=== PATIENT | male | born 1940 | race African-American/Black ===

== ENCOUNTER 2018-10-17 15:13 | Emergency (ER) | payer MEDICARE, MEDICAID ==
--- OUTSIDE RECORDS SUMMARY | 2018-10-17 15:54 | XMS REPORT | Continuity of Care Document ---
:1940 External Reference #:[id number] Author Name PriceGeorgie sánchez Care Team Providers Name Role Phone Kae Sellers MD Primary Care Physician Unavailable Payers Date Identification Numbers Payment Provider Subscriber Effective: 2015 Policy Number: [id number] Medicare Navjot Núñez PayID: [id number] [address] [place] [address] Effective: 2015 Policy Number: [id number] Medicaid Navjot Núñez Group Name: 1 1 [address] PayID: [id number] [place] [address] Advance Directives Description No Information Available Problems Date Description Provider Status Onset: 09/01/2015 Essential hypertension Juan King NP Active Onset: 02/03/2018 Type 2 diabetes mellitus Juan King NP Active Family History Date Family Member(s) Observation Comments General non contributory Social History Type Date Description Comments Sex Unknown Marital Status Lives With Granddaughter ETOH Use Denies alcohol use Tobacco Use Start: Unknown Patient has never smoked Smoking Status Reviewed: 09/26/18 Patient has never smoked Exercise Does not exercise Active around the Type/Frequency house. Allergies, Adverse Reactions, Alerts Description No Known Drug Allergies Medications Medication Date Status Form Strength Qnty SIG Indications Ordering Provider Fluticasone 01/12/ Active Suspension 50mcg/Act 16unit 2 sprays R49.0 Juan Propionate 2018 s each ZAHRA King nostril qd. (not taking) Aspirin 07/13/ Active Chewtabs 81mg once [facility] 2017 daily ZAHRA King Blood Pressure 09/26/ Active Kit 1units for home I10 Juan Monitor 2016 monitorin ZAHRA King Automatic g, 3 times weekly Lisinopril 00/00/ Active Tablets 20mg 90tabs Take 1 I10 Juan 0000 Tablet By ZAHRA King Mouth Every Day Amlodipine 00/00/ Active Tablets 10mg 90tabs Take 1 I10 Juan Besylate 0000 Tablet By ZAHRA King Mouth Every Day Immunizations CPT Code Status Date Vaccine Lot # [id number] Given 06/17/2018 Influenza Virus Vaccine, Quadrivalent, Split, [id number] Preservative Free [id number] Given 06/17/2018 Pneumococcal Conjugate Vaccine 13 Valent For [id number] Intramuscular Use Vital Signs Date Vital Result Comment 09/26/2018 11:31am Height 61.25 inches 5'1.25" Weight 131.38 lb Heart Rate 75 /min BP Systolic 162 mmHg BP Diastolic 86 mmHg BP Systolic Recheck 164 mmHg BP Diastolic Recheck 88 mmHg Body Temperature 96.7 F O2 % BldC Oximetry 98 % BMI (Body Mass Index) 24.6 kg/m2 06/17/2018 3:14pm Height 61.25 inches 5'1.25" Weight 133.00 lb Heart Rate 82 /min BP Systolic 146 mmHg BP Diastolic 79 mmHg BP Systolic Recheck 128 mmHg BP Diastolic Recheck 74 mmHg O2 % BldC Oximetry 97 % BMI (Body Mass Index) 24.9 kg/m2 02/03/2018 8:19am Height 61.25 inches 5'1.25" Weight 135.00 lb Heart Rate 87 /min BP Systolic 171 mmHg BP Diastolic 96 mmHg BP Systolic Recheck 146 mmHg BP Diastolic Recheck 86 mmHg Body Temperature 98.7 F O2 % BldC Oximetry 97 % BMI (Body Mass Index) 25.3 kg/m2 01/12/2018 4:08pm Height 61.25 inches 5'1.25" Weight 136.50 lb Heart Rate 88 /min BP Systolic 140 mmHg BP Diastolic 78 mmHg Body Temperature 97.4 F O2 % BldC Oximetry 98 % BMI (Body Mass Index) 25.6 kg/m2 11/11/2017 3:56pm Height 61.25 inches 5'1.25" Weight 134.00 lb Heart Rate 79 /min BP Systolic 146 mmHg BP Diastolic 80 mmHg Body Temperature 97.7 F O2 % BldC Oximetry 95 % BMI (Body Mass Index) 25.1 kg/m2 07/06/2017 9:56am Weight 136.00 lb Heart Rate 81 /min BP Systolic 128 mmHg BP Diastolic 68 mmHg Body Temperature 97.1 F O2 % BldC Oximetry 96 % 01/12/2017 9:25am Height 61.5 inches 5'1.50" Weight 135.00 lb Heart Rate 97 /min BP Systolic Sitting 150 mmHg BP Diastolic Sitting 90 mmHg BP Systolic Recheck 130 mmHg BP Diastolic Recheck 86 mmHg O2 % BldC Oximetry 97 % BMI (Body Mass Index) 25.1 kg/m2 07/13/2016 8:27am Height 61.5 inches 5'1.50" Weight 133.00 lb Heart Rate 78 /min BP Systolic 136 mmHg BP Diastolic 86 mmHg Body Temperature 97.5 F O2 % BldC Oximetry 98 % BMI (Body Mass Index) 24.7 kg/m2 01/09/2016 10:09am Height 61.5 inches 5'1.50" Weight 129.00 lb Heart Rate 78 /min BP Systolic Sitting 126 mmHg BP Diastolic Sitting 84 mmHg Respiratory Rate 14 /min Body Temperature 98.4 F O2 % BldC Oximetry 97 % BMI (Body Mass Index) 24.0 kg/m2 09/27/2015 9:33am Height 61.5 inches 5'1.50" Weight 132.75 lb Heart Rate 95 /min BP Systolic Sitting 182 mmHg home BP Monitor 196/97 BP Diastolic Sitting 72 mmHg home BP Monitor 196/97 BP Systolic Recheck 154 mmHg home BP recheck 176/93 BP Diastolic Recheck 84 mmHg home BP recheck 176/93 Body Temperature 96.8 F O2 % BldC Oximetry 98 % BMI (Body Mass Index) 24.7 kg/m2 08/30/2015 8:52am Height 61.5 inches 5'1.50" Weight 132.00 lb Heart Rate 70 /min BP Systolic Sitting 150 mmHg BP Diastolic Sitting 90 mmHg Respiratory Rate 15 /min Body Temperature 97.9 F O2 % BldC Oximetry 96 % BMI (Body Mass Index) 24.5 kg/m2 Results Test Date Facility Test Result H/L Range Note Laboratory test 06/17/2018 [facility] Hemoglobin A1c 6.9 5-7 finding Lipid Profile 02/08/2018 [facility] Triglycerides 47 mg/dL 1 (Trig/Chol/HDL) [address] [place] [address] [phone] Cholesterol 198 mg/dL 2 HDL Cholesterol 76.1 mg/dL 3 LDL Cholesterol 113 mg/dL 4 Urine Microalbumin 02/08/2018 [facility] Ur Microalbumin 23.[address] (mg/L) [place], [place] [id number] [phone] Urine Creatinine 232.95 mg/dL Urine Microalbumin/Creatinine 9.9 N <31 CBC No Diff 02/08/2018 [facility] White Blood 5.5 10^3/uL N 3.5-10.[address] [place] [address] [phone] Red Blood Count 4.46 10^6/uL N 4.00-5.40 Hemoglobin 13.4 g/dL Low 14.0-18.0 Hematocrit 39 % Low 42-52 Mean Corpuscular Volume 87 fL N 80-94 Mean Corpuscular Hemoglobin 30 pg N 27-31 Mean Corpuscular HGB Conc 35 g/dL N 31-36 Red Cell Distribution Width 15 % N 10.5-15 Platelet Count 229 10^3/uL N 150-450 Mean Platelet Volume 8.1 um3 N 7.4-10.4 Iron & Iron Binding 02/08/2018 [facility] Iron 148 g/dL N 50 -[address] [place], [place] [id number] [phone] Unsaturated Iron Binding 233 g/dL Total Iron Binding Capacity 381 g/dL N 250-450 Transferrin 272 mg/dL N 203-362 % Iron Saturation 39 % N 15-55 Laboratory test 02/08/2018 [facility] Ferritin 25.1 ng/mL N 24 -[address] [place], [place] [id number] [phone] Vitamin B12 933 pg/mL High 180-914 6 Laboratory test 01/19/2018 [facility] Hemoglobin A1c 6.5 % High 4.0-5.[address] (Glyco HGB) [place], [place] [id number] [phone] Urine Culture And 01/19/2018 [facility] Urine Culture SEE RESULT [address] [place] [address] [phone] Urinalysis 01/19/2018 [facility] Urine Color Yellow Profile [address] [place], [place] [id number] [phone] Urine Appearance Clear Urine Specific Bantam 1.012 N 1.010-1.030 Urine pH 7.0 N 5-9 Urine Urobilinogen Negative Negative Urine Ketones Negative Negative Urine Protein Negative Negative Urine Leukocytes 1+ Abnormal Negative Urine Blood Negative Negative Urine Nitrite Negative Negative Urine Bilirubin Negative Negative Urine Glucose Negative Negative Urine White Blood Cell Trace(0-5/hpf) Absent Urine Red Blood Cell Absent Absent Urine Bacteria Absent Absent Urine Squamous Epithelial Cell Present Abnormal Absent Urine Hyaline Casts Present Abnormal Absent Laboratory test 01/19/2018 [facility] TSH (Thyroid 1.02 mcIU/mL N 0.34-5.[address] Stim [place]orm) [place] [address] [phone] PSA Screening 1.717 ng/mL N 0-4.000 9 Comp Metabolic Panel 01/19/2018 [facility] Sodium 138 mmol/L N 135-[address] [place] [address] [phone] Potassium 4.0 mmol/L N 3.5-5.0 Chloride 102 mmol/L N 101-111 Co2 Carbon Dioxide 29 mmol/L N 22-32 Anion Gap 7 mmol/L N 2-11 Glucose 148 mg/dL High 70-100 Blood Urea Nitrogen 12 mg/dL N 6-24 Creatinine 1.19 mg/dL High 0.67-1.17 BUN/Creatinine Ratio 10.1 N 8-20 Calcium 9.4 mg/dL N 8.6-10.3 Total Protein 7.5 g/dL N 6.4-8.9 Albumin 4.0 g/dL N 3.2-5.2 Globulin 3.5 g/dL N 2-4 Albumin/Globulin Ratio 1.1 N 1-3 Total Bilirubin 0.80 mg/dL N 0.2-1.0 Alkaline Phosphatase 65 U/L N 34-104 Alt 11 U/L N 7-52 Ast 13 U/L N 13-39 Egfr Non- 59.0 >60 Egfr 71.4 >60 10 CBC Auto Diff 01/19/2018 [facility] White Blood 5.5 10^3/uL N 3.5-10.[address] [place] [address] [phone] Red Blood Count 4.20 10^6/uL N 4.00-5.40 Hemoglobin 12.6 g/dL Low 14.0-18.0 Hematocrit 36 % Low 42-52 Mean Corpuscular Volume 85 fL N 80-94 Mean Corpuscular Hemoglobin 30 pg N 27-31 Mean Corpuscular HGB Conc 35 g/dL N 31-36 Red Cell Distribution Width 15 % N 10.5-15 Platelet Count 213 10^3/uL N 150-450 Mean Platelet Volume 8.0 um3 N 7.4-10.4 Abs Neutrophils 2.4 10^3/uL N 1.5-7.7 Abs Lymphocytes 1.8 10^3/uL N 1.0-4.8 Abs Monocytes 0.4 10^3/uL N 0-0.8 Abs Eosinophils 0.8 10^3/uL High 0-0.6 Abs Basophils 0.1 10^3/uL N 0-0.2 Abs Nucleated RBC 0 10^3/uL Granulocyte % 43.4 % N 38-83 Lymphocyte % 33.4 % N 25-47 Monocyte % 7.7 % High 0-7 Eosinophil % 14.4 % High 0-6 Basophil % 1.1 % N 0-2 Nucleated Red Blood Cells % 0.2 Comp Metabolic Panel 01/01/2017 [facility] Sodium 136 mmol/L N 133-[address] [place] [address] [phone] Potassium 3.9 mmol/L N 3.5-5.0 Chloride 103 mmol/L N 101-111 Co2 Carbon Dioxide 27 mmol/L N 22-32 Anion Gap 6 mmol/L N 2-11 Glucose 129 mg/dL High 70-100 Blood Urea Nitrogen 15 mg/dL N 6-24 Creatinine 1.17 mg/dL N 0.67-1.17 BUN/Creatinine Ratio 12.8 N 8-20 Calcium 9.4 mg/dL N 8.6-10.3 Total Protein 7.6 g/dL N 6.4-8.9 Albumin 4.0 g/dL N 3.2-5.2 Globulin 3.6 g/dL N 2-4 Albumin/Globulin Ratio 1.1 N 1-3 Total Bilirubin 0.90 mg/dL N 0.2-1.0 Alkaline Phosphatase 59 U/L N 34-104 Alt 12 U/L N 7-52 Ast 15 U/L N 13-39 Egfr Non- 60.3 N >60 Egfr 77.5 N >60 11 Lipid Profile 01/01/2017 [facility] Triglycerides 58 mg/dL N 12 (Trig/Chol/HDL) [address] [place] [address] [phone] Cholesterol 197 mg/dL N 13 HDL Cholesterol 68.4 mg/dL N 14 LDL Cholesterol 117 mg/dL N 15 Laboratory test 01/01/2017 [facility] Hemoglobin A1c 5.6 % N Less than [address] (Glyco HGB) 6.0 [place] [address] [phone] Laboratory test 01/15/2016 [facility] Hemoglobin A1c 5.7 % N Less than [address] (Glyco HGB) 6.[address] [place] [address] [phone] PSA Screening 1.296 ng/mL N 0-4.000 18 Comp Metabolic Panel 01/03/2016 [facility] Sodium 138 mmol/L N 133-[address] [place] [address] [phone] Potassium 3.8 mmol/L N 3.5-5.0 Chloride 103 mmol/L N 101-111 Co2 Carbon Dioxide 29 mmol/L N 22-32 Anion Gap 6 mmol/L N 2-11 Glucose 129 mg/dL High 70-100 Blood Urea Nitrogen 18 mg/dL N 6-24 Creatinine 1.15 mg/dL N 0.67-1.17 BUN/Creatinine Ratio 15.7 N 8-20 Calcium 9.7 mg/dL N 8.6-10.3 Total Protein 7.8 g/dL N 6.4-8.9 Albumin 4.0 g/dL N 3.2-5.2 Globulin 3.8 g/dL N 2-4 Albumin/Globulin Ratio 1.1 N 1-3 Total Bilirubin 0.80 mg/dL N 0.2-1.0 Alkaline Phosphatase 64 U/L N 34-104 Alt 10 U/L N 7-52 Ast 14 U/L N 13-39 Egfr Non- 61.7 N >60 Egfr 79.3 N >60 19 Lipid Profile 01/03/2016 [facility] Triglycerides 60 mg/dL N 20 (Trig/Chol/HDL) [address] [place] [address] [phone] Cholesterol 184 mg/dL N 21 HDL Cholesterol 66.0 mg/dL N 22 LDL Cholesterol 106 mg/dL N 23 1 Desirable: <150 Borderline High: 150-199 High: 200-499 Very High: >500 2 Desirable: <200 Borderline High: 200-239 High: >239 3 Low: <40 Desirable: 40-60 High: >60 4 Desirable: <100 Near Optimal: 100-129 Borderline High: 130-159 High: 160-189 Very High: >189 5 FASTING 10 HOUR 6 Normal Range 180 to 914 Indeterminate Range 145 to 180 Deficient Range <145 7 Therapeutic target for the treatment of diabetes mellitus patients is <7% HBA1C, and in selective patients <6.0%. Please refer to [place] [employer] diabetic care guidelines for further information. 8 SEE RESULT BELOW Name: NAVJOT NÚÑEZ : [address]: Juan King NP Acct: [id number] Unit: [id number] AGE: 77 Location: LAB Re01/19/18 SEX: M Status: REG REF SPEC: [id number] JAMIE: 01/19/18-[address]: Juan King NP REQ: [id number] RECD: 01/19/18 STATUS: COMP _ SOURCE: URINE SPDESC: ORDERED: Urine Culture Procedure Result Reported Site Urine Culture Final 01/20/18- 1334 ML No Growth (<1,000 CFU/mL) * ML - Main Lab . END OF REPORT DEPARTMENT OF PATHOLOGY, [address] [place] [address] Anthony Cifuentes M.D. Director [facility] # [id number] 9 Serum levels of PSA measured using the Doug Holmdel DXI Hybritech immunoassay should not be interpreted as absolute evidence of the presence or absence of disease. The PSA value should be used in conjunction with other pertinent clinical diagnostic procedures. The values obtained with different assay methods or kits cannot be used interchangeably. 10 Because ethnic data is not always readily available, this report includes an eGFR for both -Americans and non- Americans. The National Kidney Disease Education Program (NKDEP) does not endorse the use of the MDRD equation for patients that are not between the ages of 18 and 70, are , have extremes of body size, muscle mass, or nutritional status, or are non- or non-. According to the National Kidney Foundation, irrespective of diagnosis, the stage of the disease is based on the level of kidney function: Stage Description GFR(mL/min/1.73 m(2)) 1 Kidney damage with normal or decreased GFR 90 2 Kidney damage with mild decrease in GFR 60-89 3 Moderate decrease in GFR 30-59 4 Severe decrease in GFR 15-29 5 Kidney failure <15 (or dialysis) 11 Because ethnic data is not always readily available, this report includes an eGFR for both -Americans and non- Americans. The National Kidney Disease Education Program (NKDEP) does not endorse the use of the MDRD equation for patients that are not between the ages of 18 and 70, are , have extremes of body size, muscle mass, or nutritional status, or are non- or non-. According to the National Kidney Foundation, irrespective of diagnosis, the stage of the disease is based on the level of kidney function: Stage Description GFR(mL/min/1.73 m(2)) 1 Kidney damage with normal or decreased GFR 90 2 Kidney damage with mild decrease in GFR 60-89 3 Moderate decrease in GFR 30-59 4 Severe decrease in GFR 15-29 5 Kidney failure <15 (or dialysis) 12 Desirable <150 Borderline high 150-199 High 200-499 Very High >500 13 Desirable <200 Borderline high 200-239 High >239 14 Low <40 Desirable: 40-60 High: >60 15 Desirable: <100 mg/dL Near Optimal: 100-129 mg/dL Borderline High: 130-159 mg/dL High: 160-189 mg/dL Very High: >189 mg/dL 16 Therapeutic target for the treatment of diabetes Mellitus patients is <7% HBA1C, and in selective patients <6.0%.Please refer to [place] [employer] Diabetic care guidelines for further information. 17 Therapeutic target for the treatment of diabetes Mellitus patients is <7% HBA1C, and in selective patients <6.0%.Please refer to [place] [employer] Diabetic care guidelines for further information. 18 Serum levels of PSA measured using the Doug Lemur IMS DXI Hybritech immunoassay should not be interpreted as absolute evidence of the presence or absence of disease. The PSA value should be used in conjunction with other pertinent clinical diagnostic procedures. The values obtained with different assay methods or kits cannot be used interchangeably. 19 Because ethnic data is not always readily available, this report includes an eGFR for both -Americans and non- Americans. The National Kidney Disease Education Program (NKDEP) does not endorse the use of the MDRD equation for patients that are not between the ages of 18 and 70, are , have extremes of body size, muscle mass, or nutritional status, or are non- or non-. According to the National Kidney Foundation, irrespective of diagnosis, the stage of the disease is based on the level of kidney function: Stage Description GFR(mL/min/1.73 m(2)) 1 Kidney damage with normal or decreased GFR 90 2 Kidney damage with mild decrease in GFR 60-89 3 Moderate decrease in GFR 30-59 4 Severe decrease in GFR 15-29 5 Kidney failure <15 (or dialysis) 20 Desirable <150 Borderline high 150-199 High 200-499 Very High >500 21 Desirable <200 Borderline high 200-239 High >239 22 Low <40 Desirable: 40-60 High: >60 23 Desirable: <100 mg/dL Near Optimal: 100-129 mg/dL Borderline High: 130-159 mg/dL High: 160-189 mg/dL Very High: >189 mg/dL Procedures Date Code Description Status 01/12/2018 84197 EKG Tracing & Interpretation Completed 08/27/2015 32543 EEG Recording Awake & Drowsy Completed 08/26/2015 49891 ECHO Transthorasic Realtime 2D W Doppler & Color Flow Hosp Completed Encounters Type Date Location Provider Dx Diagnosis Office Visit 02/03/2018 Jes King NP E11.9 Type 2 diabetes 8:40a Medicine mellitus without complications D64.9 Anemia, unspecified I10 Essential (primary) hypertension Office Visit 01/12/2018 4:20p Jes King NP R42 Dizziness and Medicine giddiness N39.41 Urge incontinence R35.0 Frequency of micturition I10 Essential (primary) hypertension R49.0 Dysphonia R73.01 Impaired fasting glucose Office Visit 11/11/2017 4:20p [facility] Hector Mcqueen0 Essential ( primary) Medicine MATERIAL INSPECTOR hypertension Office Visit 07/06/2017 9:40a [facility] Juan King I10 Essential ( primary) Medicine MATERIAL INSPECTOR hypertension H91.92 Unspecified hearing loss, left ear Office Visit 01/12/2017 9:00a Jes King NP Z00.00 Encntr for Medicine general adult medical exam w/o abnormal findings E78.5 Hyperlipidemia, unspecified R73.01 Impaired fasting glucose I10 Essential (primary) hypertension K59.00 Constipation, unspecified R42 Dizziness and giddiness Office Visit 07/13/2016 8:40a [facility] Juan King, I10 Essential ( primary) Medicine MATERIAL INSPECTOR hypertension Office Visit 01/09/2016 10:20a [facility] Juan King, Z00.00 Encntr for general Medicine MATERIAL INSPECTOR adult medical exam w/o abnormal findings R73.01 Impaired fasting glucose I10 Essential (primary) hypertension Z12.5 Encounter for screening for malignant neoplasm of prostate E78.5 Hyperlipidemia, unspecified Office Visit 09/27/2015 9:40a [facility] Juan King, I10 Essential ( primary) Medicine MATERIAL INSPECTOR hypertension Office Visit 08/30/2015 9:00a [facility] Juan King, I10 Essential ( primary) Medicine MATERIAL INSPECTOR hypertension R55 Syncope and collapse Office Visit 08/28/2015 9:40a [facility] Hailey Rivero, R55 Syncope and Assoc,pc N.P. collapse Hospitalists I10 Essential (primary) hypertension Office Visit 08/26/2015 9:39a [facility] Karrie Alex, R55 Syncope and Assoc,pc N.P. collapse Hospitalists I10 Essential (primary) hypertension Plan of Treatment Future Appointment(s):10/04/2018 9:00 am - Im Nurse Holter Monitor at [facility] Internal Llwbwmjo21/08/2019 9:00 am - Im Nurse Holter Monitor at [facility] Internal Ihwdowgs92/21/2019 9:00 am - Juan King NP at [facility]09/26/2018 - Juan King, NPR55 Syncope and collapseNew Orders:EKG, Ordered: Echocardiogram, Ordered: 09/26/18Comments:I am ordering some bloodwork, an echocardiogram and a holter monitor to further evaluate your symptoms. I will notify you of the results. If you have any further episodes of passing out go to the ER orcall 911.R00.2 PalpitationsNew Orders:Holter Monitor, Ordered: 09/26
[2018-10-17 16:20] LABS: ABS Basophils 0 10^3/ul (0-0.2); ABS Eosinophils 0.7 10^3/ul (0-0.6); ABS Lymphocytes 1.6 10^3/ul (1.0-4.8); ABS Monocytes 0.4 10^3/ul (0-0.8); ABS Nucleated RBC 0 10^3/ul; Eosinophil % 11.8 %; Hematocrit 41 % (36-46); Hemoglobin 13.9 g/dL (14.0-18.0); Lymphocyte % 28.2 %; Mean Corpuscular HGB Conc 34 g/dL (31-36); Mean Corpuscular Hemoglobin 30 pg (27-31); Mean Corpuscular Volume 87 fL (80-94); Mean Platelet Volume 7.7 fL (7.4-10.4); Nucleated Red Blood Cells % 0.3; Platelet Count 227 10^3/uL (150-450); Red Cell Distribution Width 16 % (10.5-15); White Blood Count 5.7 10^3/uL (3.5-10.8)
[2018-10-17 16:31] LABS: BUN/Creatinine Ratio 12.4 (8-20); Calcium 9.6 mg/dL (8.6-10.3); EGFR African American 75.7 (>60); EGFR Non-African American 62.6 (>60); Potassium 3.7 mmol/L (3.5-5.0)
[2018-10-17] MEDS ORDERED: cloNIDine TAB* 0.1 MG PO ONE (16:32)
--- NOTE | 2018-10-17 16:34 | ED ---
Hypertension - HPI Summary HPI Summary: 77-year-old male presents with high blood pressure today. He states that he went to his dentist's appointment to have his tooth extracted and they found his blood pressure to be elevated. He sent him here. He denies any symptoms. He denies any chest pressure or pain, shortness of breath, or bowel pain. He denies any dizziness change in vision or headache. He states that he feels great and has no pain. He has had a history of high blood pressure states that has never been this high. He states he's been taking his medication and has not skipped a medication. He states only thing new is that he is taking a new multivitamin. He's been on this dose of lisinopril and Norvasc for a long time he states for his HTN. He denies any drug use. - History of Current Complaint Chief Complaint: EDHypertension Stated Complaint: HIGH BP PER PT Time Seen by Provider: 10/17/18 16:24 - Allergies/Home Medications Allergies/Adverse Reactions: Allergies Allergy/AdvReac Type Severity Reaction Status Date / Time No Known Allergies Allergy Verified 10/17/18 15:23 Home Medications: Home Medications Aspirin [Aspir-Low] 1 tab PO DAILY 10/17/18 [History Confirmed 10/17/18] Lisinopril TAB* [Prinivil TAB*] 20 mg PO QAM 10/17/18 [History Confirmed ] Mv-Mn/Folic Acid/Lutein/Mpd543 [Mens Multivit High Potency Tab] 1 tab PO DAILY 10/17/18 [History Confirmed 10/17/18] amLODIPine TAB* [Norvasc 5 mg TAB*] 10 mg PO DAILY 10/17/18 [History Confirmed 10/17/18] PMH/Surg Hx/FS Hx/Imm Hx Endocrine/Hematology History: Denies: Hx Anticoagulant Therapy Cardiovascular History: Reports: Hx Hypertension Sensory History: Reports: Hx Contacts or Glasses Opthamlomology History: Reports: Hx Contacts or Glasses - Surgical History Surgery Procedure, Year, and Place: tonsillectomy Infectious Disease History: No Infectious Disease History: Reports: Hx Shingles, History Other Infectious Disease - hx measles Denies: Traveled Outside the [place] in Last 30 Days - Family History Known Family History: Positive: Hypertension - Social History Alcohol Use: None Substance Use Type: Reports: None Hx Tobacco Use: No Smoking Status (MU): Never Smoked Tobacco Review of Systems Negative: Fever Negative: Chest Pain Negative: Shortness Of Breath Negative: Abdominal Pain Negative: Headache All Other Systems Reviewed And Are Negative: Yes Physical Exam Triage Information Reviewed: Yes Vital Signs On Initial Exam: Initial Vitals Temp Pulse Resp BP Pulse Ox 98.1 F 85 16 177/98 92 10/17/18 15:22 10/17/18 15:22 10/17/18 15:22 10/17/18 15:22 10/17/18 15:22 Vital Signs Reviewed: Yes Appearance: Positive: Well-Appearing Skin: Positive: Warm, Dry Head/Face: Positive: Normal Head/Face Inspection Eyes: Positive: Normal, EOMI, MAGDALENA, Conjunctiva Clear ENT: Positive: Normal ENT inspection, Pharynx normal, TMs normal Respiratory/Lung Sounds: Positive: Clear to Auscultation, Breath Sounds Present Cardiovascular: Positive: Normal, RRR Abdomen Description: Positive: Nontender, Soft Bowel Sounds: Positive: Present Musculoskeletal: Positive: Normal Neurological: Positive: Normal Psychiatric: Positive: Normal Diagnostics - Vital Signs Vital Signs Temp Pulse Resp BP Pulse Ox 10/17/18 16:16 86 176/109 98 10/17/18 15:22 98.1 F 85 16 177/98 92 - Laboratory Lab Results: Lab Results 10/17/18 10/17/18 Range/Units 16:09 16:09 WBC 5.7 (3.5-10.8) 10^3/uL RBC 4.70 (4.18-5.48) 10^6 /uL Hgb 13.9 L (14.0-18.0) g/dL Hct 41 (36-46) % MCV 87 (80-94) fL MCH 30 (27-31) pg MCHC 34 (31-36) g/dL RDW 16 H (10.5-15) % Plt Count 227 (150-450) 10^3/uL MPV 7.7 (7.4-10.4) fL Neut % (Auto) 53.1 % Lymph % (Auto) 28.2 % [place] % (Auto) 6.4 % Eos % (Auto) 11.8 % Baso % (Auto) 0.5 % Absolute Neuts (auto) 3.0 (1.5-7.7) 10^3/ul Absolute Lymphs (auto) 1.6 (1.0-4.8) 10^3/ul Absolute Monos (auto) 0.4 (0-0.8) 10^3/ul Absolute Eos (auto) 0.7 H (0-0.6) 10^3/ul Absolute Basos (auto) 0 (0-0.2) 10^3/ul Absolute Nucleated RBC 0 10^3/ul Nucleated RBC % 0.3 Sodium 134 L (135-145) mmol/L Potassium 3.7 (3.5-5.0) mmol/L Chloride 100 L (101-111) mmol/L Carbon Dioxide 28 (22-32) mmol/L Anion Gap 6 (2-11) mmol/L BUN 14 (6-24) mg/dL Creatinine 1.13 (0.67-1.17) mg/dL Est GFR ( Amer) 75.7 (>60) Est GFR (Non-Af Amer) 62.6 (>60) BUN/Creatinine Ratio 12.4 (8-20) Glucose 134 H (70-100) mg/dL Calcium 9.6 (8.6-10.3) mg/dL Result Diagrams: 10/17/18 16:09 10/17/18 16:09 Lab Statement: Any lab studies that have been ordered have been reviewed, and results considered in the medical decision making process. - EKG No standard instances Cardiac Rate: NL EKG Rhythm: Sinus Rhythm EKG Comparison: No Significant Change Summary of EKG Findings: sinus rhythm, LVH Re-Evaluation - Re-Evaluation First Eval Re-Evaluation Time: 17:39 Comment: bp now 153/93. has no symptoms. discussed patient takes bp daily in morning has bp is normally 120-140 systolic. discussed as likely bp was elevated due to white coat syndrome will not change medications or add medications at this time. Hypertension Course/Dx - Course Course Of Treatment: 77-year-old male presents with high blood pressure today. He states that he went to his dentist's appointment to have his tooth extracted and they found his blood pressure to be elevated. He sent him here. He denies any symptoms. He denies any chest pressure or pain, shortness of breath, or bowel pain. He denies any dizziness change in vision or headache. He states that he feels great and has no pain. He has had a history of high blood pressure states that has never been this high. He states he's been taking his medication and has not skipped a medication. He states only thing new is that he is taking a new multivitamin. He's been on this dose of lisinopril and Norvasc for a long time he states. He denies any drug use. On exam has a normal physical exam. EKG shows sinus rhythm with LVH consistent with previous. lab work within normal limited. no chest pain so did not get troponin. gave clondine and bp now 153/93 with still no symptoms will here. discussed with patient that has had normal bp at home for past week when checks so will not add medication or change medication at this time as could be related to office setting and tooth pain. will have follow up with primary for continued monitoring of blood pressure. warned if anything changes to return. patient understand and agrees with plan. - Diagnoses Differential Diagnosis/HQI PQRI: Hypertension, Hypertensive Urgency, Myocardial Infarction Provider Diagnoses: Hypertension Discharge - Sign-Out/Discharge Documenting (check all that apply): Patient Departure Patient Received Moderate/Deep Sedation with Procedure: No - Discharge Plan Condition: Good Disposition: HOME Patient Education Materials: Hypertension (ED) Referrals: Juan King NP [Primary Care Provider] - Additional Instructions: continue blood pressure medications as prescribed Lower salt intake Keep blood pressure log daily Follow up with primary within 5 days Return to ED if develop chest pain, dizziness, or any new or worsening symptoms - Billing Disposition and Condition Condition: GOOD Disposition: Home
[2018-10-17 17:46] VITALS: BP 134/92
== END 2018-10-17 17:45 | disposition home or self-care (01) ==
LOC: ED 15:13
DX: I10 Essential (primary) hypertension (principal); Z79.82 Long term (current) use of aspirin
CPT/HCPCS: 36415; 80048; 85025; 93005; 99283; A9270-GY

== ENCOUNTER 2019-03-22 01:57 | Emergency (ER) | payer MEDICARE, MEDICAID ==
[2019-03-22] MEDS ORDERED: NS 0.9% 1000 ML** 1,000 ML IV ONE (02:46)
--- NOTE | 2019-03-22 02:59 | ED ---
Syncope/Near Syncope - HPI Summary HPI Summary: 78 year old M presenting to [facility] complains of an episode of dizziness followed by syncope after he got up to use the bathroom 3 hours ago. Patient states he had an episode of dizziness followed by syncope 2-3 days ago. Denies chest pain , shortness of breath. Patient states that before going to sleep, he had one episode of SOB which resolved. Symptoms aggravated by nothing. Symptoms alleviated by nothing. PMHX: HTN. Patient states he has been measuring his blood pressure recently which has been all over the place. 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 - History Of Current Complaint Chief Complaint: EDSyncope Time Seen by Provider: 03/22/19 02:50 Hx Obtained From: Patient Onset/Duration: Resolved Context: Unwitnessed Aggravating Factor(s): Nothing Alleviating Factor(s): Nothing Associated Signs And Symptoms: Negative - chest pain, shortness of breath - Allergies/Home Medications Allergies/Adverse Reactions: Allergies Allergy/AdvReac Type Severity Reaction Status Date / Time No Known Allergies Allergy Verified 03/22/19 02:33 Home Medications: Home Medications Spironolactone 12.5 mg PO DAILY 03/22/19 [History Confirmed 03/22/19] PMH/Surg Hx/FS Hx/Imm Hx Cardiovascular History: Reports: Hx Hypertension Sensory History: Reports: Hx Contacts or Glasses Opthamlomology History: Reports: Hx Contacts or Glasses - Surgical History Surgery Procedure, Year, and Place: tonsillectomy Infectious Disease History: No Infectious Disease History: Reports: Hx Shingles, History Other Infectious Disease - hx measles Denies: Traveled Outside the [place] in Last 30 Days - Family History Known Family History: Positive: Hypertension - Social History Alcohol Use: None Hx Substance Use: No Substance Use Type: Reports: None Hx Tobacco Use: No Smoking Status (MU): Never Smoked Tobacco Review of Systems - ROS Summary Review of Systems Summary: Home Medications Medication Instructions Recorded Confirmed Type Aspirin [Aspir-Low] 1 tab PO DAILY 10/17/18 03/22/19 History Lisinopril TAB* [Prinivil TAB*] 40 mg PO QAM 10/17/18 03/22/19 History Mv-Mn/Folic Acid/Lutein/Xny644 1 tab PO DAILY 10/17/18 03/22/19 History [Mens Multivit High Potency Tab] amLODIPine TAB* [Norvasc 5 mg TAB*] 10 mg PO DAILY 10/17/18 03/22/19 History Spironolactone 12.5 mg PO DAILY 03/22/19 03/22/19 History Negative: Chest Pain Negative: Shortness Of Breath Neurological: Other - Dizziness Positive: Syncope All Other Systems Reviewed And Are Negative: Yes Physical Exam - Summary Physical Exam Summary: General: Well-developed, Well-nourished MALE. No acute distress. HEENT: Normocephalic, Atraumatic. Eyes: Conjuctiva normal, PERRL. Ears: TMs within normal limits. Nares: (-) discharge, (-) erythema. Oropharynx: Clear, mucous membranes moist, (-) exudates. Neck: Soft, FROM, (-) lymphadenopathy, (-) thyromegaly, (-) JVD. Cardiovascular: Normal sinus rhythm, (-) murmur. Lungs: Clear to auscultation bilaterally (-) wheezes, (-) rales, (-) rhonchi. Abdomen: Soft, non-tender, non-distended, (-) organomegaly, normal bowel sounds. Back: (-) CVA tenderness Extremities: No edema. Skin: Warm, dry, (-) rash. Neuro: Alert and oriented x3, no focal deficits. Psychiatric: Mood normal, affect normal. GCS: 15 Triage Information Reviewed: Yes Vital Signs On Initial Exam: Initial Vitals Temp Pulse Resp BP Pulse Ox 96.9 F 67 18 163/93 99 03/22/19 02:05 03/22/19 02:05 03/22/19 02:05 03/22/19 02:05 03/22/19 02:05 Vital Signs Reviewed: Yes Diagnostics - Vital Signs Vital Signs Temp Pulse Resp BP Pulse Ox 03/22/19 02:05 96.9 F 67 18 163/93 99 - Laboratory Lab Results: Lab Results 03/22/19 Range/Units 02:20 POC Glucose (mg/dL) 108 H (70-100) mg/dL Result Diagrams: 03/22/19 03:01 03/22/19 03:01 Lab Statement: Any lab studies that have been ordered have been reviewed, and results considered in the medical decision making process. - Radiology CXR Radiology Interpretation Completed By: ED Physician Summary of Radiographic Findings: No acute process. Pending official report - CT Brain CT Interpretation Completed By: Radiologist Summary of CT Findings: 1. There is stable age-related diffuse cerebral volume loss and chronic microvascular ischemic disease. 2. No acute intracranial pathology. ED physician has reviewed this report. - EKG 0213 Cardiac Rate: NL - 79 BPM EKG Rhythm: Sinus Rhythm Summary of EKG Findings: EKG at 02:13 reveals normal sinus rhythm with rate of 79 BPM, no acute changes, no ischemic changes. This EKG was reviewed and interpreted by Dr. Quiles. Re-Evaluation - Re-Evaluation First Eval Re-Evaluation Time: 05:20 Comment: patient's IV infiltrated during CTA Chest/Thorax. patient needs another IV and will get another CTA Second Eval Re-Evaluation Time: 05:41 Comment: patient is refusing any more IV sticks Third Eval Re-Evaluation Time: 05:45 Comment: manual BP 168/98. I have discussed results with the patient and symptoms have resolved. Discussed symptoms that warrant immediate return to ED. Course/Dx Course Of Treatment: 78 year old M presenting to [facility] complains of an episode of dizziness followed by syncope after he got up to use the bathroom 3 hours ago. Patient states he had an episode of dizziness followed by syncope 2-3 days ago. Denies chest pain, shortness of breath. PMHX: HTN. Patient states he has been measuring his blood pressure recently which has been all over the place. 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 Physical exam findings: unremarkable. EKG at 02:13 reveals normal sinus rhythm with rate of 79 BPM, no acute changes, no ischemic changes. This EKG was reviewed and interpreted by Dr. Quiles. CXR shows no acute process. CT Brain shows, per radiologist: 1. There is stable age-related diffuse cerebral volume loss and chronic microvascular ischemic disease. 2. No acute intracranial pathology. Bloodwork results with no significant abnormalities except for Hgb 13.2, Hct 38, absolute eos 1.4, D-Dimer 251, creatinine 1.19, glucose 115, POC glucose 108. Toxicology results with no significant abnormalities. In the ED course, the patient was given normal saline fluids 1 L IV. Patient had an infiltrated IV on the left. Multiple IV sticks without successful IV access for PE study. Patient is refusing anymore IV sticks. Since he has good pulse ox and because his D-Dimer is only mildly elevated, we will forgo CT Chest. Patient will be discharged home with follow up from his primary care provider in 3 days. Patient was instructed to return to Emergency Department for new or worsening symptoms. Patient understands and is agreeable to this plan. - Diagnoses Provider Diagnoses: Syncope Discharge ED - Sign-Out/Discharge Documenting (check all that apply): Patient Departure - Discharge Patient Received Moderate/Deep Sedation with Procedure: No - Discharge Plan Condition: Stable Disposition: HOME Patient Education Materials: Syncope (ED) Referrals: Juan King [employer] [Primary Care Provider] - 3 Days Additional Instructions: Please follow up with your primary care physician within 3 days. Please return to Emergency Department for any new or worsening symptoms. - Billing Disposition and Condition Condition: STABLE Disposition: Home - Attestation Statements Document Initiated by Gladys: Yes Documenting Scribe: Melina Rubalcava Provider For Whom Zbigniewe is Documenting (Include Credential): Libra Quiles MD Scribe Attestation: Melina Sanchez, scribed for Libra Quiles MD on 03/22/19 at 0558. Scribe Documentation Reviewed: Yes Provider Attestation: The documentation as recorded by the Melina olivera accurately reflects the service I personally performed and the decisions made by , Libra Quiles MD Status of Scribe Document: Viewed
[2019-03-22 03:08] LABS: ABS Eosinophils 1.4 10^3/ul (0-0.6); ABS Lymphocytes 2.3 10^3/ul (1.0-4.8); ABS Monocytes 0.6 10^3/ul (0-0.8); ABS Neutrophils 2.6 10^3/ul (1.5-7.7); Eosinophil % 20.8 %; Hematocrit 38 % (42-52); Hemoglobin 13.2 g/dL (14.0-18.0); Mean Corpuscular HGB Conc 35 g/dL (31-36); Mean Corpuscular Hemoglobin 31 pg (27-31); Mean Corpuscular Volume 87 fL (80-94); Mean Platelet Volume 7.6 fL (7.4-10.4); Platelet Count 206 10^3/uL (150-450); Red Blood Count 4.33 10^6 /uL (4.18-5.48); Red Cell Distribution Width 15 % (10-15)
[2019-03-22 03:20] LABS: INR 0.91 (0.82-1.09)
[2019-03-22 03:30] LABS: ALT 10 U/L (7-52); AST 13 U/L (13-39); Albumin/Globulin Ratio 1.1 (1-3); Alkaline Phosphatase 64 U/L (34-104); Anion Gap 7 mmol/L (2-11); Blood Urea Nitrogen 19 mg/dL (6-24); CO2 Carbon Dioxide 27 mmol/L (22-32); Calcium 9.3 mg/dL (8.6-10.3); Chloride 102 mmol/L (101-111); EGFR African American 71.2 (>60); EGFR Non-African American 58.8 (>60); Globulin 3.5 g/dL (2-4); Glucose 115 mg/dL (70-100); Magnesium 2.1 mg/dL (1.9-2.7); Potassium 3.8 mmol/L (3.5-5.0); Sodium 136 mmol/L (135-145); Total Protein 7.5 g/dL (6.4-8.9)
[2019-03-22 03:32] LABS: Troponin I 0.03 ng/mL (<0.04)
[2019-03-22 03:40] LABS: Alcohol < 10 mg/dL (<10)
[2019-03-22 03:55] LABS: TSH (Thyroid Stimulating Horm) 2.93 mcIU/mL (0.34-5.60)
[2019-03-22 04:33] LABS: Urine Appearance Clear; Urine Bacteria Absent (Absent); Urine Bilirubin Negative (Negative); Urine Blood Negative (Negative); Urine Color Straw; Urine Glucose Negative (Negative); Urine Ketones Negative (Negative); Urine Nitrite Negative (Negative); Urine Protein Negative (Negative); Urine Red Blood Cell Trace(0-2/hpf) (Absent); Urine Specific Gravity 1.009 (1.010-1.030); Urine Squamous Epithelial Cell Present (Absent); Urine Urobilinogen Negative (Negative); Urine White Blood Cell Trace(0-5/hpf) (Absent)
[2019-03-22] MEDS ORDERED: Iohexol 350* (CONTRAST) 500 ML MDV IV ONE (04:45)
[2019-03-22 06:13] VITALS: BP 150/96
== END 2019-03-22 06:13 | disposition home or self-care (01) ==
LOC: ED 01:57
DX: R55 Syncope and collapse (principal); G31.89 Other specified degenerative diseases of nervous system; I10 Essential (primary) hypertension; Z79.82 Long term (current) use of aspirin
CPT/HCPCS: 36415; 70450; 71045; 71275; 80053; 80320; 81003; 81015; 83605; 83735; 84443; 84484; 85025; 85379; 85610; 87077; 87086; 93005; 96360; 96361; 99283; G0480; Q9967

== ENCOUNTER 2022-02-12 10:05 | Observation (INO) ==
[2022-02-12 14:32] LABS: ABS Lymphocytes 0.8 10^3/ul (1.0-4.8); ABS Monocytes 0.6 10^3/ul (0-0.8); ABS Neutrophils 2.1 10^3/ul (1.5-7.7); Eosinophil % 1.3 %; Hematocrit 38 % (42-52); Lymphocyte % 21.1 %; Mean Corpuscular HGB Conc 35 g/dL (31-36); Mean Corpuscular Hemoglobin 30 pg (27-31); Mean Corpuscular Volume 86 fL (80-94); Mean Platelet Volume 8.6 fL (7.4-10.4); Platelet Count 212 10^3/uL (150-450); Red Blood Count 4.36 10^6 /uL (4.18-5.48); Red Cell Distribution Width 15 % (10-15); White Blood Count 3.6 10^3/uL (3.5-10.8)
[2022-02-12 14:56] LABS: High Sens Troponin Baseline 80 pg/mL (<20)
[2022-02-12 15:24] LABS: ALT 11 U/L (7-52); Albumin 4.2 g/dL (3.2-5.2); Alkaline Phosphatase 64 U/L (35-149); Blood Urea Nitrogen 14 mg/dL (6-24); CO2 Carbon Dioxide 27 mmol/L (22-32); Calcium 9.4 mg/dL (8.6-10.3); Chloride 96 mmol/L (101-111); Globulin 4.1 g/dL (2-4); Glucose 173 mg/dL (70-100); Sodium 129 mmol/L (135-145); Total Protein 8.3 g/dL (6.4-8.9); eGFR CKD-EPI 72.1 (>60)
[2022-02-12 15:29] LABS: Anion Gap 6 mmol/L (2-11)
[2022-02-12] MEDS ORDERED: NS 0.9% 1000 ml BAG 1,000 ML IV ONE (15:33)
[2022-02-12 15:36] LABS: TSH Ultra Thyroid Stim Horm 0.33 mcIU/mL (0.34-5.60)
[2022-02-12 15:59] LABS: High Sensitivity Troponin 1 Hr 84 pg/mL (<20)
[2022-02-12] MEDS ORDERED: NS 0.9% 1000 ml BAG 1,000 ML IV SCH (16:45)
[2022-02-12 16:52] LABS: Magnesium 2.1 mg/dL (1.9-2.7)
[2022-02-12] MEDS ORDERED: Magnesium Hydroxide LIQ 30 ML UDC PO PRN (18:10)
[2022-02-12] MEDS ORDERED: Al Hydrox/Mg Hydrox/Simet LIQ 30 ML UDC PO PRN (18:10)
[2022-02-12] MEDS ORDERED: Remdesivir 100 mg Vial 200 MG in NS 0.9% 250 ml 210 ML IV ONE (18:32)
[2022-02-12 20:26] LABS: Urine Appearance Clear; Urine Bilirubin Negative (Negative); Urine Blood Trace (Intact) (Negative); Urine Color Colorless; Urine Glucose Negative (Negative); Urine Ketones Negative (Negative); Urine Nitrite Negative (Negative); Urine Protein Negative (Negative); Urine Specific Gravity 1.015 (1.005-1.030); Urine Urobilinogen 0.2 (Negative) (Negative)
[2022-02-12 20:29] LABS: Urine Bacteria 1+ (Absent); Urine Red Blood Cell Trace(0-2/hpf) (Absent); Urine Squamous Epithelial Cell Present (Absent); Urine White Blood Cell Trace(0-5/hpf) (Absent)
[2022-02-12 20:34] LABS: INR 1.12 (0.89-1.11)
[2022-02-12] MEDS ORDERED: Enoxaparin 40 MG/0.4 ML SYR SUBCUT SCH (21:00)
[2022-02-13 06:54] LABS: INR 1.1 (0.89-1.11)
[2022-02-13 06:58] LABS: Hematocrit 36 % (42-52); Hemoglobin 12.6 g/dL (14.0-18.0); Mean Corpuscular HGB Conc 35 g/dL (31-36); Mean Corpuscular Hemoglobin 30 pg (27-31); Mean Corpuscular Volume 85 fL (80-94); Mean Platelet Volume 8.7 fL (7.4-10.4); Platelet Count 158 10^3/uL (150-450); Red Blood Count 4.24 10^6 /uL (4.18-5.48); Red Cell Distribution Width 15 % (10-15); White Blood Count 2.5 10^3/uL (3.5-10.8)
[2022-02-13 07:12] LABS: Albumin 3.5 g/dL (3.2-5.2); Albumin/Globulin Ratio 1.1 (1-3); Calcium 8.6 mg/dL (8.6-10.3); Globulin 3.3 g/dL (2-4); Potassium 3.8 mmol/L (3.5-5.0); Total Bilirubin 0.4 mg/dL (0.2-1.0); Total Protein 6.8 g/dL (6.4-8.9); eGFR CKD-EPI 73.8 (>60)
[2022-02-13 07:49] LABS: ABS Neutrophils 0.9 10^3/ul (1.5-7.7)
[2022-02-13 08:07] LABS: ABS Monocytes 0.6 10^3/ul (0-0.8); Eosinophil % 0.3 %; Nucleated Red Blood Cells % 0.2
[2022-02-13 11:54] VITALS: BP 139/68
[2022-02-13] MEDS ORDERED: Remdesivir 100 mg Vial 100 MG in NS 0.9% 250 ml 230 ML IV SCH (21:00)
== END 2022-02-13 13:15 | disposition home or self-care (01) ==
LOC: ED 10:05 → EDHOLD 10:05 → SUATTDRO 16:43 → MED 23:52
PROVIDERS: ADMIT Internal Medicine; ATTEND Student in an Organized Health Care Education/Training Program